=== PATIENT | male | born 2000 | race Hispanic/Latino ===

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

== ENCOUNTER 2020-09-09 07:17 | Outpatient (CLI) | payer BC | END 2020-09-09 07:18 | disposition home or self-care (01) | LOC: BICULT 07:17 | PROVIDERS: ATTEND Physician Assistant | DX: R79.89 Other specified abnormal findings of blood chemistry (principal); K82.8 Other specified diseases of gallbladder | CPT/HCPCS: 93975 ==